=== PATIENT | female | born 1965 | race Caucasian/White ===

== ENCOUNTER 2022-04-25 14:00 | Outpatient (RCR) | payer OTHER, SELFPAY ==
[2022-04-12 11:02] VITALS: BP 108/70; PULSE 80; TEMP 36.6
[2022-04-12 11:18] VITALS: BMI 23.6
--- NOTE | 2022-04-12 13:03 | HO.PS.ADMBH ---
HPI Date of Service: 04/12/22 Chief Complaint: MDD,ALTAF Sources of Information: patient interviewed, chart reviewed and crisis/core team assessment reviewed HPI Medical Problems Affecting Mental Status: No Narrative: Patient is a 56-year-old female, referred to [facility] through her psychiatric provider DIANE Jones, [facility]. Patient reports increased symptoms of depression, anxiety and panic, including anhedonia, feeling hopeless and helpless, excessive sleep, decreased energy, poor motivation, crying, over eating, poor self-esteem, poor self-worth, passive SI without intent or plan to harm herself. Precipitants to worsening symptoms include work stressors, and her suffered a stroke, also being diagnosed with diabetes. Currently on leave from work in [employer] for a [employer]. Patient has also had recent medication changes, started Pristiq, which reports are causing cognitive symptoms, brain fog . Had been taking Lexapro for years, found that it was no longer as effective. Currently does not have an outpatient therapist, but is considering resuming therapy. Patient was tearful throughout interview. Describes a history of depression, ?for decades ?. Reports that she becomes extremely overwhelmed, and cries. Described her mood as ?sad, anxious ?. Denies any SI at this time, reports that she feels safe. Would like to have medication changes while here. Past Psychiatric History: Psych provider: DIANE Jones, [facility], . No current therapist. Medication trials: Does not recall, was started with Wellbutrin 9 years ago, finds effective. IP: 2014, [facility], for dep and SI. Medical Evaluation Reviewed: Yes [facility] Medical History No known health problems Family History: denies Social History: Born and raised by both parents. Has 3 younger siblings. Met developmental milestones as expected, graduated high school. Has been 35 years, no children. Has worked for [employer] for 15 years, in [employer] for 10. Has support network through her hindu. Substance History: Occasional social alcohol, several times per year. Trauma History: none Diagnostics Vital Signs (24Hr): Vital Signs - 24 hr 04/12/22 11:02 Temperature 97.9 F Pulse Rate 80 Blood Pressure 108/70 BMI result Body Mass Index 23.6 Meds/Allergies Meds Home Medications Medication Instructions Recorded Confirmed Type bupropion HCl 200 mg tablet,12 hr 1 tab PO BID 04/12/22 04/12/22 History sustained-release clonazepam 0.5 mg tablet 1 tab PO BID 04/12/22 04/12/22 History escitalopram oxalate 10 mg tablet 1 tab PO DAILY 04/12/22 04/12/22 History lamotrigine 100 mg tablet 1 tab PO BID 04/12/22 04/12/22 History Allergies Allergies Allergy/AdvReac Type Severity Reaction Status Date / Time No Known Allergies Allergy Verified 04/12/22 11:17 Mental Status Exam Mental Status Exam Narrative: Well-developed, well-nourished female, in NAD. Appears stated age. Appropriately dressed in casual attire. Normal ambulation and posture. No tics or tremors, no abnormal movements. Denies SI at this time, either active or passive. No perceptual disturbances. Patient Appearance: Well Grooomed Patient Orientation: Person, Place and Time Level of Consciousness: Appropriate Patient Behavior: Appropriate, Cooperative, Good Eye Contact and Crying Mood Description: Depressed and Anxious Affect Description: Depressed and Anxious Patient Cognition Impaired: No Ability to Follow Directions: Excellent Speech Pattern: Clear and Appropriate Memory Description: Intact Hallucinations: None Delusions: Not Present Thought Process: Intact Thought Content: positive for Intact Depressive Symptoms: Increased Anxiety, Sleeping More Than Usual, Loss of Int. in Activity, Feelings of Worthlessness, Hopelessness, Unhappiness, Low Self Esteem, Loss of Energy and Difficulty Concentrating Judgement: Fair Assessment & Plan Assessment & Plan (1) Major depressive disorder, recurrent severe without psychotic features: Status: Acute Code(s): F33.2 - Major depressive disorder, recurrent severe without psychotic features Assessment and Plan: Patient patient presents to partial hospitalization program on advice of her psychiatric provider, due to increased symptoms of anxiety in depression. She reports symptoms have been getting progressively worse for months, that she realizes she needs help. She is nervous about participating in partial, as she has never participated in any type of group therapy. Feels overwhelmed today. Was crying throughout interview. When asked to describe her mood, she states that she feels ?sad, anxious ?. Denies any SI at this time, reports that she feels safe. States that she was doing well with Lexapro for some time, had Wellbutrin added in 2013 after her inpatient stay. States that the Wellbutrin has been helpful. Has had multiple stressors over the past year, including serious illness, multiple changes at her job. Also had a medication change to Pristiq fairly recently. Reports that since starting Pristiq, has had difficulties with cognition, describing it as ?brain fog?, states that she is talking slower, finds herself groping for words. Also has been having constipation since starting the medication. Is interested in medication changes at this time. Discussed various medications in detail, such as taper down off Pristiq. Patient has remained with low-dose Lexapro. Discussed stopping that, starting another SSRI such as fluoxetine or sertraline, as she has had success with SSRI in past. Also discussed BuSpar in order to help manage anxiety symptoms. Also discussed possibility of another SNRI. Patient is willing to start taper down of Pristiq at this time, will keep other medications as currently prescribed. (2) Generalized anxiety disorder: Status: Acute Code(s): F41.1 - Generalized anxiety disorder Plan 1. Continue with current [facility] plan of care. 2. Lower Pristiq to 50 mg daily. Reviewed potential withdrawal symptoms with patient. 3. Continue with other medications as currently prescribed. 4. Call was placed to outpatient provider Erin Hall, message left. 5. Follow-up as per protocol. Patient educated on: diagnosis, medication risk/benefits and therapeutic strategies Informed Consent: understands Reason for continued partial hosp. stay Substantial Risk for: harm to self and rapid decompensation Certification I certify that partial hospital treatment is medically necessary due to the symptoms and problems resulting from the patient's mental illness and the failure to treat the patient at the partial hospital level of care would likely result in the patient requiring inpatient psychiatric care which could not be prevented at a less intensive level of care. Time Spent With Patient Time: Total time managing care of this patient today __55__ minutes.
--- NOTE | 2022-04-12 14:08 | PC.ADMIT ---
Patient is a 56 year old female who was referred to [facility] by her prescriber d/t increased sxs of depression and anxiety. Feeling overwhelmed with work stressors and her husbands medical issues.See Integrative assessment for more information. Patient is alert and oriented x4. Tearful at times during the nursing assessment. Presented with depressed mood and anxious affect. Feeling hopeless and helpless regarding her situation. Patient denied SI or thoughts to hurt herself. Patient given a copy of her safety plan if needed. Patient is taking a leave of absence from work and reports she has not worked in over a month d/t her mental health. Patient stated she works in a [employer] and has worked for them for 10 years. Patient reports poor diet overeating snacks and sleep has increased as a way to cope with how she is feeling. Denied any substance issues. Reports taking medications as prescribed. Medications reconciled with patient and her pharmacy.
[2022-04-12 14:23] LABS: Amphetamine Screen Urine Not Detected (Not Detect); Barbiturates, Urine Not Detected (Not Detect); Benzodiazepines Screen Urine Not Detected (Not Detect); Cannabinoid Screen Urine Not Detected (Not Detect); Cocaine Screen Urine Not Detected (Not Detect); Fentanyl, urine Not Detected (Not Detect); Opiate Screen Urine Not Detected (Not Detect); Phencyclidine Screen Urine Not Detected (Not Detect)
--- NOTE | 2022-04-19 08:02 | HO.PHPIOP ---
The clients case was opened in treatment team. He dx and treatment plan were discussed.
--- NOTE | 2022-04-22 12:54 | P.PNPSP_ITS ---
Subjective Subjective Date of Service: 04/22/22 Reason For Visit: MDD,ALTAF Medical Problems Affecting Mental Status: No Interim History: Mood improving, less anxious, less depressed. Worried about returning to work, work stressors. No SI, no safety concerns. Feels better physically, less ?brain fog ?. Tolerating meds well, some constipation due to Pristiq. Needs a new therapist. Needs a return to work letter, part-time hours to start. Medication Compliance: Yes Side effects from medications: Yes (constipation from pristiq) Attending Groups: Yes Review of Systems Acute medical concerns: No Medical Review of Systems: changed Review of Systems Review of Systems Yes all other systems are reviewed and are negative Gastrointestinal: Reports constipation Mental Status Exam Mental Status Exam Narrative: NAD. Denies SI at this time, either active or passive. Mood less depressed, less anxious. Affect more bright, more easily engageable. Patient Appearance: Well Grooomed Patient Orientation: Person, Place, Time and Situation Level of Consciousness: Appropriate and Alert Patient Behavior: Appropriate, Cooperative and Good Eye Contact Mood Description: Depressed (imroving) and Anxious (improving) Affect Description: Appropriate and Anxious Patient Cognition Impaired: No Ability to Follow Directions: Excellent Speech Pattern: Clear and Appropriate Memory Description: Intact Hallucinations: None Delusions: Not Present Thought Process: Intact Thought Content: positive for Intact Depressive Symptoms: Increased Anxiety, Sleeping More Than Usual, Loss of Int. in Activity, Unhappiness, Low Self Esteem and Difficulty Concentrating Judgement: Fair Diagnostics Vital Signs (24Hr): BMI result Body Mass Index 23.6 Assessment & Plan Assessment & Plan (1) Major depressive disorder, recurrent severe without psychotic features: Status: Acute Code(s): F33.2 - Major depressive disorder, recurrent severe without psychotic features Assessment and Plan: Patient continues with anxiety and depression, although improving. Reports last week she cried 4 days out of 5, and this week she cried only 1 day out of 5. States program has been helpful, working on coping skills while here. Wants to begin therapy again. Expresses some concern regarding return to work. We discussed easing into a schedule with part-time at [employer]. She was agreeable with this. Letter to be prepared with recommendations. She states her employer is working with her and her supervisor [employer] has suggested easing back in to schedule, and is understanding of her needs. No thoughts of harm to self or others, no safety concerns. Satisfied with current medications. We discussed gradual reduction of Lexapro. Continues with 10 at this time along with Pristiq 50mg. Recommended dropping Lexapro down to 5 mg daily, either now or next visit. Patient prefers to keep medications as they are at this time. (2) Generalized anxiety disorder: Status: Acute Code(s): F41.1 - Generalized anxiety disorder Plan 1. Continue with current [facility] plan of care. 2. Continue with current medication regimen. 3. Follow-up as per protocol. 4. Prepare recommendation letter for return to work with reduced hours. Patient educated on: diagnosis, medication risk/benefits and therapeutic strategies Informed Consent: understands Reason for contiued partial hosp. stay Substantial Risk for: inability to function and rapid decompensation Certification I certify that partial hospital treatment is medically necessary due to the symptoms and problems resulting from the patient's mental illness and the failure to treat the patient at the partial hospital level of care would likely result in the patient requiring inpatient psychiatric care which could not be prevented at a less intensive level of care. Total time managing care of this patient today ___20_ minutes. Discharge Plan Discharge Attending provider: Armando Vera Medications: New desvenlafaxine succinate 50 mg tablet extended release 24 hr 50 mg PO DAILY Qty: 30 0RF Discontinued desvenlafaxine succinate 100 mg tablet extended release 24 hr 1 tab PO DAILY No Action clonazepam 0.5 mg tablet 1 tab PO BID bupropion HCl 200 mg tablet sustained-release 12 hr 1 tab PO BID lamotrigine 100 mg tablet 1 tab PO BID escitalopram oxalate 10 mg tablet 1 tab PO DAILY Stand Alone Forms: Patient Portal Discharge page
--- NOTE | 2022-04-22 15:38 | HO.PHPIOP ---
I left a message at the [facility] [phone] requesting an appointment for an outpatient therapist. Requested a call back
--- NOTE | 2022-04-25 09:58 | HO.PHPIOP ---
Left message at [facility] re requesting an appointment for therapy.
--- NOTE | 2022-04-25 11:36 | HO.PHPPROGNO ---
Subjective Subjective Date of Service: 04/25/22 Reason For Visit: MDD,ALTAF Interim History: Anxious mood and affect, Worried about returning to work. Otherwise feels improved. No SI, no safety concerns. Feels stable for discharge from [facility]. Medication Compliance: Yes Side effects from medications: No Attending Groups: Yes Review of Systems Acute medical concerns: No Medical Review of Systems: unchanged Review of Systems Review of Systems Yes all other systems are reviewed and are negative Constitutional: Reports no additional constitutional complaints Mental Status Exam Mental Status Exam Narrative: NAD. Denies SI at this time, either active or passive. Patient Appearance: Well Grooomed Patient Orientation: Person, Place, Time and Situation Level of Consciousness: Appropriate and Alert Patient Behavior: Appropriate, Cooperative and Good Eye Contact Mood Description: Anxious (improving) Affect Description: Appropriate and Anxious Patient Cognition Impaired: No Ability to Follow Directions: Excellent Speech Pattern: Clear and Appropriate Memory Description: Intact Hallucinations: None Delusions: Not Present Thought Process: Intact Thought Content: positive for Intact Depressive Symptoms: Increased Anxiety, Low Self Esteem and Difficulty Concentrating Judgement: Good Diagnostics Vital Signs (24Hr): BMI result Body Mass Index 23.6 Assessment & Plan Assessment & Plan (1) Generalized anxiety disorder: Status: Acute Code(s): F41.1 - Generalized anxiety disorder Assessment and Plan: Overall mood much improved. Express some anxiety regarding returning to work, due to work stressors. Satisfied with current medications. No side effects from meds at this time. Discussed returning to work part-time at [employer], with easing Into full-time. Letter provided with this recommendation to patient. No SI, no safety concerns. Still waiting to hear back regarding obtaining a therapist at [place], where she sees her psychiatric provider. Feels stable for discharge today. (2) Major depressive disorder, recurrent severe without psychotic features: Status: Acute Code(s): F33.2 - Major depressive disorder, recurrent severe without psychotic features Plan 1. Patient appears stable for discharge from [facility] at this time. 2. Patient to follow-up with outpatient providers going forward. Patient educated on: diagnosis, medication risk/benefits and therapeutic strategies Informed Consent: understands Reason for contiued partial hosp. stay Substantial Risk for: stable for discharge Certification I certify that partial hospital treatment is medically necessary due to the symptoms and problems resulting from the patient's mental illness and the failure to treat the patient at the partial hospital level of care would likely result in the patient requiring inpatient psychiatric care which could not be prevented at a less intensive level of care. Total time managing care of this patient today ___20_ minutes. Discharge Plan Discharge Attending provider: Armando Vera Medications: New desvenlafaxine succinate 50 mg tablet extended release 24 hr 50 mg PO DAILY Qty: 30 0RF Discontinued desvenlafaxine succinate 100 mg tablet extended release 24 hr 1 tab PO DAILY No Action clonazepam 0.5 mg tablet 1 tab PO BID bupropion HCl 200 mg tablet sustained-release 12 hr 1 tab PO BID lamotrigine 100 mg tablet 1 tab PO BID escitalopram oxalate 10 mg tablet 1 tab PO DAILY Stand Alone Forms: Patient Portal Discharge page Patient Education: Depression (DC), Generalized Anxiety Disorder (ED)
== END 2022-04-25 23:59 | disposition home or self-care (01) ==
LOC: HO.PHPA 14:00
PROVIDERS: Visit Provider Psychiatry & Neurology Psychiatry
DX: F33.2 Major depressive disorder, recurrent severe without psychotic features (principal); F41.1 Generalized anxiety disorder; Z79.899 Other long term (current) drug therapy
CPT/HCPCS: 80307; 90791; 90853